=== PATIENT | female | born 1950 | race Caucasian/White ===

== ENCOUNTER → 2017-07-05 | Outpatient (CLI) | payer MEDICARE, OTHER ==
--- NOTE | 2017-07-05 09:43 | REP ---
Digital diagnostic bilateral mammography with CAD: History: Patient status post benign needle localization directed excisional biopsy left breast. Screening study on the right. Comparison mammography November 28, 2016, October 17, 2016. Mammographic findings: There is a stable benign appearing nodule containing microcalcifications in the left breast. This is in the upper outer quadrant. Minimal postoperative change is seen in the inferomedial quadrant of the left breast. No neodensity or microcalcifications are observed. The previously biopsied microcalcifications are no longer apparent. The right breast is unchanged and unremarkable. Mild scattered fibroglandular elements are seen. No suspicious finding on either side. Impression: BIRADS category II benign bilateral mammography. Repeat screening mammography recommended in 1 year. BI-RADS/ACR category 2 mammogram. Benign finding(s). Routine annual screening mammography (for women over age 40). This mammogram was interpreted with the aid of an FDA-approved computer-aided detection system. The patient states she had a clinical breast exam in June 2017 The patient letter being requested is m1. Signed by Joseph Barahona MD 07/05/2017 01:24 P
== END ==
LOC: M RAD 08:38
PROVIDERS: ATTEND Surgery
DX: N60.92 Unspecified benign mammary dysplasia of left breast (principal); R92.0 Mammographic microcalcification found on diagnostic imaging of breast

== ENCOUNTER → 2018-05-11 | Outpatient (CLI) | payer MEDICARE, OTHER | LOC: M PLARAD 14:33 | DX: M54.5 Low back pain (principal); M54.6 Pain in thoracic spine | CPT/HCPCS: 72146 ==

== ENCOUNTER → 2019-06-28 | Outpatient (CLI) | payer MEDICARE, OTHER ==
--- NOTE | 2019-06-28 10:45 | REP ---
MRI LUMBAR SPINE WITHOUT CONTRAST: HISTORY: Low back pain. Right foot drop. Weakness. Difficulty walking. Radiculopathy. Prior fusion. COMPARISON STUDY: May 11, 2018. TECHNIQUE: Sagittal and axial T1- and T2-weighted scans are acquired in the usual fashion with and without fat saturation. Sequences include spin echo, turbo spin echo, and STIR imaging sequences. Metallic artifact reduction software was utilized. MRI FINDINGS: There is a 3.9 cm simple cyst in the right kidney. This was partially visualized previously. No other extra spinal abnormality is observed. Lumbar vertebral body heights are preserved. Transpedicle screw/raymundo fixation has been performed. Metallic screws are in place bilaterally at L3 and L5. Intervertebral disc fusion devices are noted in place at L3-4 L4-5. These findings are unchanged. At the L2-3 disc level, there is a fairly large bulging disc compressing the thecal sac. This combined with developmentally somewhat short pedicles, ligamentum flavum hypertrophy, and some osteophytic ridging produces central canal stenosis which is moderate. This is unchanged. AP dimension of the thecal sac at this level is 7 mm. There is some redundancy and a components of the cauda equina above this level. There is mild bilateral foraminal narrowing due to facet hypertrophy also unchanged. At L1-2, there is degenerative disc bulging effacing the ventral subarachnoid space as well. Canal size is borderline. The disc bulging is more prominent on the left than the right and these findings are unchanged. There is diffuse bulging at the T12-L1 disc margin as well unchanged. At L5-S1, there is no evidence of disc protrusion. No central canal stenosis or foraminal narrowing is seen. There is no evidence of recurrent disc herniation at L4-5 or L3-4. IMPRESSION: Status post L3 through L5 fusion bilaterally unchanged. Degenerative disc disease and ligamentum flavum hypertrophy producing moderate central canal stenosis at L2-3 unchanged. Bilateral foraminal narrowing at L2-3 unchanged. Borderline canal size L1-2 with diffusely bulging disc. Electronically Signed by Joseph Barahona MD 06/28/2019 10:56 A
== END ==
LOC: M PLARAD 09:01
PROVIDERS: ATTEND Physician Assistant Medical
DX: M51.36 Other intervertebral disc degeneration, lumbar region (principal); Z98.1 Arthrodesis status

== ENCOUNTER → 2021-07-12 | Outpatient (REF) | payer MEDICARE, OTHER | LOC: M LAB REF 17:13 | PROVIDERS: ATTEND Internal Medicine Nephrology | DX: N18.31 Chronic kidney disease, stage 3a (principal) ==

== ENCOUNTER → 2022-10-10 | Outpatient (REF) ==
[2022-10-10 15:00] LABS: COLLAGEN EPINEPHRINE 116 SECONDS (74-162)
== END ==
LOC: M LAB REF 13:12
PROVIDERS: ATTEND Family Medicine
DX: Z00.00 Encounter for general adult medical examination without abnormal findings (principal)

== ENCOUNTER → 2024-12-10 | Outpatient (REF) | payer MEDICARE, OTHER ==
[2024-12-10 20:17] LABS: ALBUMIN 3.6 G/DL (3.2-5.2); ALKALINE PHOSPHATASE 45 U/L (35-104); ALT/SGPT 15 U/L (7.0-40); AST/SGOT 14 U/L (<34); BILIRUBIN,TOTAL 0.9 MG/DL (0.3-1.2); BLOOD UREA NITROGEN 15 MG/DL (9-23); CALCIUM LEVEL 9.6 MG/DL (8.3-10.6); CARBON DIOXIDE LEVEL 28 MMOL/L (20-31); CHLORIDE LEVEL 104 MMOL/L (98-107); CHOLESTEROL LEVEL 119 MG/DL (<200); CHOLESTEROL RISK RATIO 2.14 (<5); CREATININE FOR GFR 0.93 MG/DL (0.55-1.30); GLOMERULAR FILTRATION RATE > 60.0 (>39); GLUCOSE, FASTING 90 MG/DL (74-106); HDL CHOLESTEROL 55.6 MG/DL (>40); LDL CHOLESTEROL 44.2 MG/DL (<100); NON-HDL-C 63.4 MG/DL; SODIUM LEVEL 141 MMOL/L (136-145); TOTAL PROTEIN 6.7 G/DL (5.7-8.2); TRIGLYCERIDES LEVEL 96 MG/DL (<150)
[2024-12-10 20:20] LABS: FREE T4 1.06 NG/DL (0.89-1.76); THYROID STIMULATING HORMONE 0.934 uIU/ML (0.55-4.78)
[2024-12-10 20:22] LABS: TOTAL 25(OH) VITAMIN D 53.2 NG/ML (20.0-100.0)
[2024-12-10 20:38] LABS: HEMOGLOBIN A1c 5.2 % (4.0-6.0)
== END ==
LOC: M LAB REF 17:44
PROVIDERS: ATTEND Family Medicine
DX: I10 Essential (primary) hypertension (principal); M51.17 Intervertebral disc disorders with radiculopathy, lumbosacral region; R73.9 Hyperglycemia, unspecified; R60.9 Edema, unspecified; E55.9 Vitamin D deficiency, unspecified